=== PATIENT | female | born 1950 | race Caucasian/White ===

== ENCOUNTER 2018-10-05 11:56 | Emergency (ER) | payer MEDICARE, OTHER ==
[~2018-10-05] VITALS: Ht 167.6 cm; Wt 64.5 kg
[2018-10-05 12:03] VITALS: Ht 167.6 cm; Wt 64.5 kg
[2018-10-05] MEDS ORDERED: PROPOFOL 200 MG INJ IV STA (14:32)
[2018-10-05] MEDS ORDERED: IBUP-1542 PO (16:10)
[2018-10-05 16:22] VITALS: BP 128/74; PULSE 72; RESP 20
--- NOTE | 2018-10-05 17:53 | ERD ---
ER Documentation Chief Complaint Chief Complaint Complains of a right arm pain x 2 days HPI Patient is a 68-year-old female with hypertension who presents with right-sided shoulder pain. The pain started this morning after she fell in the bathtub. She fell onto her right arm. She is right-handed. She did not hit her head. She has had difficulty with range of motion since. She does have a primary doctor. ROS All systems reviewed and are negative except as per history of present illness. Medications Home Meds Active Scripts Ibuprofen* (Motrin*) 600 Mg Tab, 600 MG PO Q6H PRN for PAIN AND OR ELEVATED TEMP, #30 TAB Prov:RAKESH KELLOGG MD 10/05/18 Allergies Allergies: Coded Allergies: No Known Allergy (Unverified , 10/05/18) PMhx/Soc Positive for hypertension Medical and Surgical Hx: pt denies Surgical Hx Hx Alcohol Use: No Hx Substance Use: No Hx Tobacco Use: No Smoking Status: Never smoker FmHx Family History: diabetes Physical Exam Vitals Vital Signs Date Temp Pulse Resp B/P (MAP) Pulse Ox O2 O2 Flow FiO2 Time Delivery Rate 10/05/18 72 20 128/74 97 Room Air 16:22 (92) 10/05/18 99 3.0 15:09 10/05/18 64 20 100 Nasal 2.0 15:09 Cannula 10/05/18 Nasal 2 14:55 Cannula 10/05/18 68 19 152/94 99 Room Air 14:33 (113) 10/05/18 98.0 78 20 141/83 97 12:03 (102) Physical Exam Const: No acute distress Head: Atraumatic Eyes: Normal Conjunctiva ENT: Normal External Ears, Nose and Mouth. Neck: Full range of motion. No meningismus. Resp: Clear to auscultation bilaterally Cardio: Regular rate and rhythm, no murmurs Abd: Soft, non tender, non distended. Normal bowel sounds Skin: No petechiae or rashes Back: No midline or flank tenderness Ext: Exam consistent with right shoulder dislocation, pulses intact Neur: Awake and alert, 3 nerve roots of the right upper extremity are intact Psych: Normal Mood and Affect Results 24 hrs Current Medications Medications Dose Sig/Reed Start Time Status Last (Trade) Ordered Route PRN Stop Time Admin Dose Reason Admin Propofol 200 mg ONCE STAT 10/05/18 DC (Diprivan) IV 14:32 10/05/18 14:33 Procedures/MDM X-ray Shoulder 3V Interpreted by me: Bones: No obvious fracture Joints: Anterior dislocation of the glenohumeral joint Foreign body: None Procedural Sedation: Pre-assessment performed. See preceding complete history and physical for details. Time out performed. See sedation documentation for details. Medication(s): Propofol 60 mg IV Complications: No hypoxic or apneic events Recovered without incident. Greater than 15 minutes of face to face time included in sedation and recovery. Shoulder Reduction by me: Anesthesia: Propofol 60 mg IV Location: Right shoulder Technique: External rotation Results: [employer] of normal anatomic positioning Compl: Neurovascularly intact post procedure. Splint Note Type: Shoulder immobilizer Location: Right shoulder Indication: Dislocation with reduction in ER Splint Assessment: Neurovascularly intact post splint placement with good fit. Post-reduction X-ray Shoulder 3V Interpreted by me: Bones: No fracture Joints: Relocation of previously noted dislocation Foreign body: None Patient will be discharged and can follow up with Dr. Rock from [facility] for reevaluation. Departure Diagnosis: Primary Impression: Shoulder dislocation Encounter type: initial encounter Laterality: right Qualified Codes: S43.004A - Unspecified dislocation of right shoulder joint, initial encounter Condition: Fair Patient Instructions: Dislocation: Shoulder (Reduced) Referrals: PIYUSH ROCK MD Additional Instructions: SPECIALIST: YOU HAVE A MEDICAL CONDITION WHICH REQUIRES YOU TO SEE A SPE CIALIST WITHIN THE NEXT 1-2 DAYS. PLEASE FOLLOW UP WITH YOUR PRIMARY PHYSICIAN FOR REFFERAL.IF YOU DO NOT HAVE A PRIMARY CARE PHYSICIAN AND/OR YOU CAN NOT AFFORD TO SEE A PHYSICIAN THE FOLLOWING RESOURCES HAVE BEEN SUPPLIED TO YOU. IT IS YOUR RESPONSIBILITY TO BE SEEN BY THE SPECIALIST RAKESH KELLOGG MD Oct 05, 2018 17:53
== END 2018-10-05 16:24 | disposition home or self-care (01) ==
LOC: FTE 11:56 → E/R 16:24
DX: S43.004A Unspecified dislocation of right shoulder joint, initial encounter (principal); I10 Essential (primary) hypertension; W18.2XXA Fall in (into) shower or empty bathtub, initial encounter; Y92.9 Unspecified place or not applicable
CPT/HCPCS: 94770

== ENCOUNTER 2018-11-04 10:18 | Emergency (ER) | payer MEDICARE, OTHER ==
[~2018-11-04] VITALS: Wt 59.1 kg
[~2018-11-04 10:18] MED LIST: IBUP-1542 PO
[2018-11-04] MEDS ORDERED: IBUPROFEN 600 MG TAB PO ONE (11:00)
[2018-11-04] MEDS ORDERED: IBUP-1542 PO (12:44)
[2018-11-04] MEDS ORDERED: ACET-141 PO (12:44)
--- NOTE | 2018-11-04 12:46 | ERD ---
ER Documentation Chief Complaint Chief Complaint r. knee pain ROS All systems reviewed and are negative except as per history of present illness. Medications Home Meds Active Scripts Ibuprofen* (Motrin*) 600 Mg Tab, 600 MG PO Q6H PRN for PAIN AND OR ELEVATED TEMP, #30 TAB Prov:CISCO SANCHEZ DO 11/04/18 Acetaminophen* (Acetaminophen*) 500 MG Extra Strength Tablet, 500 MG PO Q4H PRN for MILD PAIN(1-3)OR ELEVATED TEMP, #30 TAB Prov:CISCO SANCHEZ DO 11/04/18 Ibuprofen* (Motrin*) 600 Mg Tab, 600 MG PO Q6H PRN for PAIN AND OR ELEVATED TEMP, #30 TAB Prov:RAKESH KELLOGG MD 10/05/18 Allergies Allergies: Coded Allergies: No Known Allergy (Unverified , 11/04/18) PMhx/Soc Hx Alcohol Use: No Hx Substance Use: No Hx Tobacco Use: No Smoking Status: Never smoker Physical Exam Vitals Vital Signs Date Temp Pulse Resp B/P (MAP) Pulse Ox O2 O2 Flow FiO2 Time Delivery Rate 11/04/18 97.2 79 20 144/89 97 10:20 (107) Physical Exam Const: No acute distress Head: Atraumatic Eyes: Normal Conjunctiva ENT: Normal External Ears, Nose and Mouth. Neck: Full range of motion. No meningismus. Resp: Clear to auscultation bilaterally Cardio: Regular rate and rhythm, no murmurs Abd: Soft, non tender, non distended. Normal bowel sounds Skin: No petechiae or rashes Back: No midline or flank tenderness Ext: No cyanosis, or edema Neur: Awake and alert Psych: Normal Mood and Affect Results 24 hrs Current Medications Medications Dose Sig/Reed Start Time Status Last (Trade) Ordered Route PRN Stop Time Admin Dose Reason Admin Ibuprofen 600 mg ONCE ONCE 11/04/18 DC 11/04/18 (Motrin) PO 11:00 11:05 11/04/18 11:01 Departure Diagnosis: Primary Impression: Knee pain Chronicity: unspecified Laterality: right Qualified Codes: M25.561 - Pain in right knee Condition: Fair Patient Instructions: What Is Bursitis? Referrals: [facility] YOU HAVE RECEIVED A MEDICAL SCREENING EXAM AND THE RESULTS INDICATE THAT YOU DO NOT HAVE A CONDITION THAT REQUIRES URGENT TREATMENT IN THE EMERGENCY DEPARTMENT. FURTHER EVALUATION AND TREATMENT OF YOUR CONDITION CAN WAIT UNTIL YOU ARE SEEN IN YOUR DOCTORS OFFICE WITHIN THE NEXT 1-2 DAYS. IT IS YOUR RESPONSIBILITY TO MAKE AN APPOINTMENT FOR FOLOW-UP CARE. IF YOU HAVE A PRIMARY DOCTOR --you should call your primary doctor and schedule an appointment IF YOU DO NOT HAVE A PRIMARY DOCTOR YOU CAN CALL OUR PHYSICIAN REFERRAL HOTLINE AT IF YOU CAN NOT AFFORD TO SEE A PHYSICIAN YOU CAN CHOSE FROM THE FOLLOWING [facility] [address] [facility] [address] [facility] [address] [facility] [address] [facility] [address] [facility]. [facility]. [address] Additional Instructions: Call your primary care doctor TOMORROW for an appointment during the next 1-2 days.See the doctor sooner or return here if your condition worsens before your appointment time. CISCO SANCHEZ DO Nov 04, 2018 12:45
== END 2018-11-04 12:59 | disposition home or self-care (01) ==
LOC: FTE 10:18
DX: M25.561 Pain in right knee (principal)
CPT/HCPCS: 73562